=== PATIENT | male | born 1940 | race Asian ===

== ENCOUNTER 2018-02-27 15:37 | Emergency (ER) | payer MEDICARE, MEDICAID ==
[~2018-02-27] VITALS: Ht 185.4 cm; Wt 90.0 kg
[2018-02-27] MEDS ORDERED: BACITRACIN 0.9 GM PACKET OINTMENT TP ONE ×2 (16:45)
[2018-02-27 17:14] LABS: GLUCOSE,POINT OF CARE 125 MG/DL (70-110)
[2018-02-27 18:00] VITALS: BP 118/62
== END 2018-02-27 18:25 | disposition home or self-care (01) ==
LOC: EMS 15:38
DX: S51.801A Unspecified open wound of right forearm, initial encounter (principal); S51.802A Unspecified open wound of left forearm, initial encounter; S41.102A Unspecified open wound of left upper arm, initial encounter; S80.212A Abrasion, left knee, initial encounter; S80.211A Abrasion, right knee, initial encounter; S50.311A Abrasion of right elbow, initial encounter; I10 Essential (primary) hypertension; E11.9 Type 2 diabetes mellitus without complications; W18.39XA Other fall on same level, initial encounter; Y93.89 Activity, other specified; Y92.89 Other specified places as the place of occurrence of the external cause; Y99.8 Other external cause status
CPT/HCPCS: 99283